=== PATIENT | female | born 2000 | race Caucasian/White ===

== ENCOUNTER 2024-09-03 07:03 | Emergency (ER) | payer SELFPAY ==
--- NOTE | ~2024-09-03 | XR_ITS ---
Clinical Indication: Chest pain PA and lateral views of the chest: Comparison: None Findings: The lungs are clear, without evidence of focal consolidation or pleural effusion. Cardiome diastinal silhouette is within normal limits. Bones and soft tissues are unremarkable. Impression: Normal chest. Reviewed, dictated and finalized at location . Impression: Normal chest.
[2024-09-03 06:57] VITALS: BP 127/65; PULSE 90; RESP 14; O2SAT 100
--- NOTE | 2024-09-03 07:06 | ECG_ITS ---
Test Date: 2024-09-03 07:07:29 Measurements Intervals Wisner Rate: 86 P: 77 MS: 150 QRS: 93 QRSD: 93 T: 58 QT: 328 QTc: 394 Interpretive Statements SINUS RHYTHM WITH SINUS ARRHYTHMIA BORDERLINE RIGHT AXIS DEVIATION [QRS AXIS > 90] BORDERLINE ECG No previous ECG available for comparison Electronically Signed On 09-03-2024 10:17:41 CDT by Homero Luz M.D.
[2024-09-03 07:07] VITALS: O2SAT 100
[2024-09-03 07:08] VITALS: PULSE 90
[2024-09-03 07:10] VITALS: BP 127/65; PULSE 85; RESP 20; O2SAT 100
[2024-09-03 07:25] LABS: Hematocrit 35.3 % (37.0-47.0); Hemoglobin 11.8 g/dL (12.0-15.0); Immature Granulocyte Percent A 0.5 % (0-0.5); Lymphocytes Absolute Auto 2.77 K/mm3 (0.9-3.2); Mean Corpuscular HGB Conc 33.4 g/dl (32-36); Mean Corpuscular Hemoglobin 29.9 pg (26-34); Mean Corpuscular Volume 89.4 fl (80-100); Nucleated Red Blood Cells Absolute Auto 0.000 K/mm3 (0.0-0.012); Nucleated Red Blood Cells Perc 0.0 % (0.0-0.2); Platelet Count Result 166 k/mm3 (150-375); Red Blood Count 3.95 M/mm3 (4.2-5.4); White Blood Count 8.9 K/mm3 (4.5-10.0)
[2024-09-03 07:37] LABS: Alanine Aminotransferase 12 U/L (6-35); Albumin Level 4.4 g/dL (3.5-5.1); Alkaline Phosphatase 62 U/L (38-126); Anion Gap 10 mmol/L (4-12); Aspartate Amino Transferase 25 U/L (14-36); Bilirubin,Total 0.7 mg/dL (0.2-1.3); Blood Urea Nitrogen 8 mg/dL (7-17); Calcium 9.4 mg/dL (8.4-10.2); Carbon Dioxide 24 mmol/L (22-30); Chloride 106 mmol/L (98-107); Estimated Glomerular Filt Rate > 60; Glucose 95 mg/dL (65-110); Lipase 95 U/L (23-300); Potassium 3.4 mmol/L (3.4-5.0); Sodium 140 mmol/L (137-145); Total Protein 7.1 g/dL (6.3-8.2)
[2024-09-03 07:48] LABS: Troponin I < 0.012 ng/mL (0.000-0.034)
[2024-09-03 08:22] LABS: INR 1.1; Prothrombin Time 14.4 Seconds (11.1-14.7)
[2024-09-03 08:23] VITALS: BP 110/77; PULSE 81; RESP 16; O2SAT 100
[2024-09-03 08:26] LABS: Partial Thromboplastin Time 30.0 Seconds (22.3-36.8)
--- NOTE | 2024-09-03 13:13 | ED.CHESTPAIN ---
HPI - Chest Pain General Chief Complaint: Chest Pain Stated Complaint: chest pain Time Seen by Provider: 09/03/24 07:06 History of Present Illness HPI narrative: Patient recently had a of a family member 2 weeks ago, at that time she became extremely anxious, felt like she could not breathe and felt chest pain, that episode resolved. This morning she had another similar episode. Related Data Allergies Allergy/AdvReac Type Severity Reaction Status Date / Time No Known Allergies Allergy Verified 09/03/24 07:09 Review of Systems Review of Systems: All systems reviewed & are unremarkable except as noted in HPI and below Exam Narrative: EXAMINATION OF ORGAN SYSTEMS/BODY AREAS: Constitutional: Vital signs per nursing GENERAL:[No acute distress, non-toxic appearing.] HEAD: Normal with no signs of head trauma. EYES: EOMI, conjunctiva normal ENT: Hearing grossly intact LUNGS: Nonlabored breathing. HEART: [Regular rate and rhythm] ABD: [Soft], [nontender to palpation] EXT: Normal range of motion SKIN: [No rashes or lesions.] NEURO: [Alert and oriented x 3. No gross focal sensory or strength deficits.] PSYCH: Normal affect; intermittently tearful when talking about her family member Course Vital Signs Vital signs: Vital Signs Pulse Rate 90 09/03/24 06:57 Respiratory Rate 14 09/03/24 06:57 Blood Pressure 127/65 09/03/24 06:57 Pulse Oximetry 100 09/03/24 06:57 Oxygen Delivery Room Air 09/03/24 06:57 Pulse Rate 81 09/03/24 08:23 Respiratory Rate 16 09/03/24 08:23 Blood Pressure 110/77 09/03/24 08:23 Pulse Oximetry 100 09/03/24 08:23 Oxygen Delivery Room Air 09/03/24 07:07 MDM - Chest Pain MDM Narrative Medical decision making narrative: Patient presenting here with symptoms consistent with anxiety attack. On exam patient is intermittently tearful/anxious. I will obtain EKG and chest xray to rule out arrhythmia/ischemia, pneumothorax, or other cause of chest discomfort/shortness of breath. Chest x-ray on my independent interpretation does not show any acute abnormality, no pneumothorax or consolidation. EKG - 12-Lead: Performed at 0707. Interpreted by me. [Sinus rhythm]. Rate 86. [Normal] axis. IA-interval [normal]. QRS duration [normal]. QTc [normal]. [No ST segment elevation or depression]. [T-wave normal]. Impression: No EKG evidence of acute ischemia or dysrhythmia. Labs normal including troponin. On reevaluation patient is feeling better, resting comfortably, vital signs now stable. She has no thoughts of hurting herself or anyone else she does feel safe at home has good support. I do feel patient is stable for discharge home at this time with followup to their doctor, and return here if symptoms return or worsen. Agreeable to outpatient management. Lab Data 09/03/24 07:17 09/03/24 07:17 Labs: Lab Results 09/03/24 Range/Units 07:17 WBC 8.9 (4.5-10.0) K/mm3 RBC 3.95 L (4.2-5.4) M/mm3 Hgb 11.8 L (12.0-15.0) g/dL Hct 35.3 L (37.0-47.0) % MCV 89.4 (80-100) fl MCH 29.9 (26-34) pg MCHC 33.4 (32-36) g/dl RDW 11.9 (11.5-14.5) % Plt Count 166 (150-375) k/mm3 MPV 10.6 H (7.4-10.4) fl Immature Gran % (Auto) 0.5 (0-0.5) % Neut % (Auto) 60.5 (45.5-73.1) % Lymph % (Auto) 31.3 (18.3-44.2) % Levy % (Auto) 6.0 (2.6-8.5) % Eos % (Auto) 1.1 (0-4.4) % Baso % (Auto) 0.6 (0.2-1.2) % Lymph # (Auto) 2.77 (0.9-3.2) K/mm3 Levy # (Auto) 0.5 (0.1-0.6) K/mm3 Eos # (Auto) 0.1 (0-0.3) K/mm3 Baso # (Auto) 0.1 (0.0-0.1) K/mm3 Abs Immat Gran (auto) 0.04 H (0.00-0.031) K/mm3 Absolute Neuts (auto) 5.4 (1.3-6.7) K/mm3 Absolute Nucleated RBC 0.000 (0.0-0.012) K/mm3 Nucleated RBC % 0.0 (0.0-0.2) % PT 14.4 (11.1-14.7) Seconds INR 1.1 APTT 30.0 (22.3-36.8) Seconds Sodium 140 (137-145) mmol/L Potassium 3.4 (3.4-5.0) mmol/L Chloride 106 (98-107) mmol/L Carbon Dioxide 24 (22-30) mmol/L Anion Gap 10 (4-12) mmol/L BUN 8 (7-17) mg/dL Creatinine 0.71 (0.7-1.0) mg/dL Estim Creat Clear Calc Not Reportable Estimated GFR > 60 (59 - ) Glucose 95 (65-110) mg/dL Calcium 9.4 (8.4-10.2) mg/dL Total Bilirubin 0.7 (0.2-1.3) mg/dL AST 25 (14-36) U/L ALT 12 (6-35) U/L Alkaline Phosphatase 62 (38-126) U/L Troponin I < 0.012 (0.000-0.034) ng/mL Total Protein 7.1 (6.3-8.2) g/dL Albumin 4.4 (3.5-5.1) g/dL Lipase 95 (23-300) U/L Discharge Plan Discharge Clinical Impression: Anxiety attack, Grief, Atypical chest pain Patient Disposition: Home Condition: Stable Instructions: Chest Pain (ED), Grief and Loss (ED), Panic Attack (ED) Additional Instructions: Please follow up with your doctor; you can always return to the ER for any further issues. Patient Language: Sammarinese Prescriptions: New hydroxyzine HCl 25 mg tablet 25 mg PO TID PRN (Reason: anxiety) Qty: 30 0RF Follow-up/Referrals: Ney,EMELYN Pelletier [Non-Staff] - 2 Days UNKNOWN,DOCTOR [Primary Care Provider] -
== END 2024-09-03 08:25 | disposition home or self-care (01) ==
PROVIDERS: Emergency Provider Emergency Medicine
DX: F41.9 Anxiety disorder, unspecified (principal); F43.21 Adjustment disorder with depressed mood; R07.89 Other chest pain; R94.31 Abnormal electrocardiogram [ECG] [EKG]
CPT/HCPCS: 36415; 71046; 80053; 83690; 84484; 85025; 85610; 85730; 93005; 99284